=== PATIENT | male | born 1975 | race Caucasian/White ===

== ENCOUNTER 2021-06-26 22:22 | Inpatient (IN) | payer MEDICAID, SELFPAY ==
[2021-06-26 22:26] VITALS: BP 129/86; PULSE 82; RESP 22; TEMP 36.8; O2SAT 97
[2021-06-26 22:32] VITALS: BMI 23.9
[2021-06-26] MEDS: OLANZapine 5 mg ODT PO (23:02)
[2021-06-26] MEDS: trazodone 50 mg Tablet PO (23:24)
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
[2021-06-27 06:00] VITALS: BP 87/59; PULSE 88; RESP 20; TEMP 36.7; O2SAT 94
--- NOTE | 2021-06-27 09:08 | PC.OT ---
OT EVALUATION ATTEMPTED; PATIENT IS SLEEPING SOUNDLY. DID NOT AWAKE DURING MY EVALUATION WITH HIS ROOMMATE. DID NOT AWAKEN TO HIS NAME.
[2021-06-27] MEDS: acetaminophen 325 mg Tablet 650 MG PO (11:10)
[2021-06-27] MEDS: OLANZapine 5 mg ODT PO (13:06)
[2021-06-27 14:00] VITALS: BP 154/96; PULSE 73; RESP 18; TEMP 36.8; O2SAT 97
[2021-06-27] MEDS: latanoprost 0.005% Op Soln 2.5 mL Btl 1 DROP EYE-BOTH (18:30)
[2021-06-27] MEDS: levETIRAcetam 500 mg Tablet PO (18:30)
[2021-06-27] MEDS: OLANZapine 10 mg TABLET 20 MG PO (18:30)
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
[2021-06-27] MEDS: fluoxetine 20 mg Capsule 40 MG PO (18:50)
[2021-06-27] MEDS: trazodone 50 mg Tablet PO (21:21)
[2021-06-27 21:55] VITALS: BP 104/70; PULSE 106; RESP 16; TEMP 36.8; O2SAT 97
[2021-06-28 06:00] VITALS: BP 89/55; PULSE 61; RESP 19; TEMP 37.1; O2SAT 96
[2021-06-28] MEDS: multivitamin therapeutic Tablet 1 TAB PO (08:27)
[2021-06-28] MEDS: levETIRAcetam 500 mg Tablet PO ×2 (08:27→17:41)
[2021-06-28] MEDS: fluoxetine 20 mg Capsule 40 MG PO (08:27)
[2021-06-28] MEDS: thiamine 100 mg Tablet PO (08:27)
[2021-06-28] MEDS: folic acid 1 mg Tablet PO (08:27)
[2021-06-28] MEDS: timolol 0.5% Op Soln 5 mL Btl 1 DROP EYE-BOTH (08:28)
[2021-06-28] MEDS: acetaminophen 325 mg Tablet 650 MG PO ×2 (08:55→20:26)
[2021-06-28 13:40] VITALS: BP 94/69; PULSE 70; RESP 18; TEMP 36.5; O2SAT 96
--- NOTE | 2021-06-28 17:03 | W.PM.NPUPNS ---
Subjective NPU Subjective: Interval history: Patient presents today reporting that he is doing well resuming his medication. However he did feel like he may have been too much and we discussed the length of time that it had been since he had taken his medication which she continues to report to be around 2 weeks. We discussed the risk benefits and alternatives of decreasing the doses of the Prozac and Zyprexa briefly to allow him to get accustom and he understood agreed to proceed as is documented in this note. Mental Status Exam MSE Comments: This is an underweight, male, in hospital scrubs, with limited grooming, and eye contact. No abnormal movements except for psychomotor retardation. Cooperative with exam in mild distress. Speech was decreased rate and volume. Mood described as a little better but feeling groggy; affect congruent. Thought process, organized. Thought content: patient denied any suicidal or homicidal ideation, there were no delusions reported or noted, patient denied any auditory or visual hallucinations. Attention, concentration, and memory appear intact but were not formally tested. He is alert and oriented times three. Insight and judgment are limited, impulse control impaired. Vitals/I&O/Wt Last Vital Signs Temp 98.4 F 06/28/21 20:57 Pulse 78 06/28/21 20:57 Resp 16 06/28/21 20:57 BP 94/62 06/28/21 20:57 Pulse Ox 94 06/28/21 20:57 A&P Assessment and plan (1) Alcohol dependence: Status: Acute (2) Major depressive disorder, recurrent: Status: Acute (3) PTSD (post-traumatic stress disorder): Status: Acute Plan This is a 46-year-old, male, with major depressive disorder, post-traumatic stress disorder, alcohol dependence, alcohol withdrawal, alcohol intoxication, who presents struggling with staying sober and getting to this inpatient program that is set up in less than two weeks. RECOMMENDATION AND PLAN: 1. Continue current medication. But reduce the Zyprexa and Prozac briefly to allow him to accommodate to his old doses. 2. Encourage individual, group, and milieu therapy. 3. Continue q-15 minute checks for safety. 4. Encourage sober living treatment after discharge, at the highest level of care, to which he is willing to commit. Involuntary Hold Information 96 Hour Hold: 96 Hour Involuntary Admission: No Attestations NPU Medical Necessity Statement*: Inpatient hospitalization is medically necessary and the clinically appropriate intervention, at this time. We will monitor medications and make changes as indicated. Likely length of stay is 3-5 days. 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
[2021-06-28] MEDS: OLANZapine 10 mg TABLET 20 MG PO (17:41)
[2021-06-28] MEDS: latanoprost 0.005% Op Soln 2.5 mL Btl 1 DROP EYE-BOTH (17:42)
[2021-06-28] MEDS: trazodone 50 mg Tablet PO (20:26)
[2021-06-28 20:57] VITALS: BP 94/62; PULSE 78; RESP 16; TEMP 36.9; O2SAT 94
[2021-06-29 06:00] VITALS: BP 99/64; PULSE 55; RESP 15; TEMP 36.5; O2SAT 96
[2021-06-29] MEDS: folic acid 1 mg Tablet PO (08:54)
[2021-06-29] MEDS: thiamine 100 mg Tablet PO (08:54)
[2021-06-29] MEDS: multivitamin therapeutic Tablet 1 TAB PO (08:54)
[2021-06-29] MEDS: fluoxetine 20 mg Capsule PO (08:54)
[2021-06-29] MEDS: levETIRAcetam 500 mg Tablet PO ×2 (08:54→17:45)
[2021-06-29] MEDS: timolol 0.5% Op Soln 5 mL Btl 1 DROP EYE-BOTH (09:08)
--- NOTE | 2021-06-29 09:27 | W.PM.NPUPNS ---
Subjective NPU Subjective: Interval history: Patient presented today starting to feel better from the standpoint of being back on his medications but now starting to have. Infection his choices and being back at the situation back hospitalized for [id number] and what ever time. We had a fairly lengthy discussion about positive self talk and forgiving oneself as much as we ask others to forgive us. He continued to discuss the likelihood of discharge in next 48 hours. Mental Status Exam MSE Comments: This is an underweight, male, in hospital scrubs, with limited grooming, and eye contact. No abnormal movements except for mild psychomotor retardation. Cooperative with exam in mild distress. Speech was decreased rate and volume. Mood described as a little better; affect congruent. Thought process, organized. Thought content: patient denied any suicidal or homicidal ideation, there were no delusions reported or noted, patient denied any auditory or visual hallucinations. Attention, concentration, and memory appear intact but were not formally tested. He is alert and oriented times three. Insight and judgment are limited, impulse control impaired. Vitals/I&O/Wt Last Vital Signs Temp 97.7 F 06/29/21 06:00 Pulse 55 L 06/29/21 06:00 Resp 15 06/29/21 06:00 BP 99/64 06/29/21 06:00 Pulse Ox 96 06/29/21 06:00 A&P Assessment and plan (1) Alcohol dependence: Status: Acute (2) Major depressive disorder, recurrent: Status: Acute (3) PTSD (post-traumatic stress disorder): Status: Acute Plan This is a 46-year-old, male, with major depressive disorder, post-traumatic stress disorder, alcohol dependence, alcohol withdrawal, alcohol intoxication, who presents struggling with staying sober and getting to this inpatient program that is set up in less than two weeks. RECOMMENDATION AND PLAN: 1. Continue current medication.? But reduce the Zyprexa and Prozac briefly to allow him to accommodate to his old doses. 2. Encourage individual, group, and milieu therapy. 3. Continue q-15 minute checks for safety. 4. Encourage sober living treatment after discharge, at the highest level of care, to which he is willing to commit. Involuntary Hold Information 96 Hour Hold: 96 Hour Involuntary Admission: No Attestations NPU Medical Necessity Statement*: Inpatient hospitalization is medically necessary and the clinically appropriate intervention, at this time. We will monitor medications and make changes as indicated.? Likely length of stay is 2-4 days. 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
[2021-06-29 14:00] VITALS: BP 106/71; PULSE 78; RESP 18; TEMP 36.3; O2SAT 97
[2021-06-29] MEDS: ibuprofen 800 mg tablet PO (16:45)
[2021-06-29] MEDS: latanoprost 0.005% Op Soln 2.5 mL Btl 1 DROP EYE-BOTH (18:27)
[2021-06-29] MEDS: OLANZapine 10 mg TABLET PO (20:18)
[2021-06-29 20:28] VITALS: BP 112/79; PULSE 89; RESP 20; TEMP 36.3; O2SAT 97
[2021-06-29] MEDS: trazodone 50 mg Tablet PO (22:23)
[2021-06-30] MEDS: hyDROXYzine 25 mg Capsule 50 MG PO (00:18)
[2021-06-30 06:00] VITALS: BP 96/63; PULSE 53; RESP 16; TEMP 36.5; O2SAT 98
--- NOTE | 2021-06-30 07:14 | W.PM.NPUPNS ---
Subjective NPU Subjective: Interval history: Patient presents today reporting that he is feeling more optimistic evacuation. He has a plan to make some calls for single morning and work with the treatment team to get set up at the facility that have been discussed. He reports that he is feeling better on the medication and just now needs to really get in charge of his drinking. We discussed recovery oriented focus and programming in the likelihood of discharge in the next 48 hours depending on transportation and availability as he would need to be in the area by 8 PM. Mental Status Exam MSE Comments: This is an underweight, male, in hospital scrubs, with limited grooming, and eye contact. No abnormal movements except for mild psychomotor retardation. Cooperative with exam in no acute distress. Speech was decreased rate and volume. Mood described as better; affect congruent. Thought process, organized. Thought content: patient denied any suicidal or homicidal ideation, there were no delusions reported or noted, patient denied any auditory or visual hallucinations. Attention, concentration, and memory appear intact but were not formally tested. He is alert and oriented times three. Insight and judgment are limited, impulse control impaired. Vitals/I&O/Wt Last Vital Signs Temp 97.7 F 06/30/21 06:00 Pulse 53 L 06/30/21 06:00 Resp 16 06/30/21 06:00 BP 96/63 06/30/21 06:00 Pulse Ox 98 06/30/21 06:00 Weight last 48 hrs Weight 69.127 kg A&P Assessment and plan (1) Alcohol dependence: Status: Acute (2) Major depressive disorder, recurrent: Status: Acute (3) PTSD (post-traumatic stress disorder): Status: Acute Plan This is a 46-year-old, male, with major depressive disorder, post-traumatic stress disorder, alcohol dependence, alcohol withdrawal, alcohol intoxication, who presents struggling with staying sober and getting to this inpatient program that is set up in less than two weeks. RECOMMENDATION AND PLAN: 1. Continue current medication.? But reduce the Zyprexa and Prozac briefly to allow him to accommodate to his old doses. 2. Encourage individual, group, and milieu therapy. 3. Continue q-15 minute checks for safety. 4. Encourage sober living treatment after discharge, at the highest level of care, to which he is willing to commit. Involuntary Hold Information 96 Hour Hold: 96 Hour Involuntary Admission: No Attestations NPU Medical Necessity Statement*: Inpatient hospitalization is medically necessary and the clinically appropriate intervention, at this time. We will monitor medications and make changes as indicated.? Likely length of stay is 1-3 days. 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
[2021-06-30] MEDS: multivitamin therapeutic Tablet 1 TAB PO (09:26)
[2021-06-30] MEDS: thiamine 100 mg Tablet PO (09:26)
[2021-06-30] MEDS: levETIRAcetam 500 mg Tablet PO ×2 (09:26→20:43)
[2021-06-30] MEDS: folic acid 1 mg Tablet PO (09:26)
[2021-06-30] MEDS: fluoxetine 20 mg Capsule PO (09:26)
[2021-06-30] MEDS: timolol 0.5% Op Soln 5 mL Btl 1 DROP EYE-BOTH (09:26)
[2021-06-30 14:00] VITALS: BP 98/64; PULSE 68; RESP 18; TEMP 37.1; O2SAT 97
[2021-06-30] MEDS: trazodone 50 mg Tablet PO (20:43)
[2021-06-30] MEDS: OLANZapine 10 mg TABLET PO (20:43)
[2021-06-30] MEDS: latanoprost 0.005% Op Soln 2.5 mL Btl 1 DROP EYE-BOTH (20:44)
[2021-06-30 22:00] VITALS: BP 110/65; PULSE 65; RESP 18; TEMP 36.7; O2SAT 94
[2021-06-30] MEDS: acetaminophen 325 mg Tablet 650 MG PO (23:04)
[2021-07-01 06:00] VITALS: BP 99/66; PULSE 60; RESP 16; TEMP 36.4; O2SAT 96
[2021-07-01] MEDS: timolol 0.5% Op Soln 5 mL Btl 1 DROP EYE-BOTH (08:49)
[2021-07-01] MEDS: multivitamin therapeutic Tablet 1 TAB PO (08:50)
[2021-07-01] MEDS: levETIRAcetam 500 mg Tablet PO ×2 (08:50→21:05)
[2021-07-01] MEDS: thiamine 100 mg Tablet PO (08:50)
[2021-07-01] MEDS: folic acid 1 mg Tablet PO (08:50)
[2021-07-01] MEDS: fluoxetine 20 mg Capsule PO (08:50)
[2021-07-01 14:00] VITALS: BP 101/73; PULSE 87; RESP 18; TEMP 37.1; O2SAT 96
[2021-07-01] MEDS: ibuprofen 800 mg tablet PO (17:20)
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
[2021-07-01] MEDS: latanoprost 0.005% Op Soln 2.5 mL Btl 1 DROP EYE-BOTH (21:05)
[2021-07-01] MEDS: hyDROXYzine 25 mg Capsule 50 MG PO (21:06)
[2021-07-01] MEDS: OLANZapine 10 mg TABLET PO (21:06)
[2021-07-01 22:00] VITALS: BP 97/65; PULSE 80; RESP 18; TEMP 36.7; O2SAT 98
[2021-07-02 06:00] VITALS: BP 109/72; PULSE 60; RESP 16; TEMP 36.7; O2SAT 99
[2021-07-02] MEDS: folic acid 1 mg Tablet PO (09:13)
[2021-07-02] MEDS: levETIRAcetam 500 mg Tablet PO (09:13)
[2021-07-02] MEDS: thiamine 100 mg Tablet PO (09:13)
[2021-07-02] MEDS: fluoxetine 20 mg Capsule PO (09:13)
[2021-07-02] MEDS: multivitamin therapeutic Tablet 1 TAB PO (09:13)
[2021-07-02] MEDS: timolol 0.5% Op Soln 5 mL Btl 1 DROP EYE-BOTH (09:14)
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
[2021-07-02 10:47] VITALS: BP 109/72; PULSE 60; RESP 16; TEMP 36.7; O2SAT 99
--- NOTE | 2021-07-02 10:54 | NPU.GN ---
[facility] Unit Group Topic:Dominguez Gaines General Mood of Group: Roc did not attend group today.
== END 2021-07-02 10:57 | disposition home or self-care (01) | DRG 882 ==
PROVIDERS: Admitting Provider Psychiatry & Neurology Psychiatry; Visit Provider Psychiatry & Neurology Psychiatry
DX: F43.10 Post-traumatic stress disorder, unspecified (principal); F33.9 Major depressive disorder, recurrent, unspecified; F10.20 Alcohol dependence, uncomplicated; Z91.51 Personal history of suicidal behavior
CPT/HCPCS: 97165